=== PATIENT | female | born 1955 | race African-American/Black ===

== ENCOUNTER 2016-06-08 07:41 | Emergency (ER) | payer OTHER ==
[~2016-06-08] VITALS: Ht 165.1 cm; Wt 110.0 kg
[~2016-06-08 07:41] MED LIST: ASPI81 PO; CLON.1 PO; LOTR5CAP3 PO; PRAV10 OR; PREM0.622 PO; PROT40TA PO
[2016-06-08 07:44] VITALS: BP 188/94; PULSE 84; RESP 15; TEMP 98.2; O2SAT 99
--- NOTE | 2016-06-08 08:00 | PD ---
HPI . 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 Patient was moving a medical bed here at the hospital when a portion of the bed fell backwards and hit her in her face. She is complaining of swelling over her upper lip and very minimally on her left cheek. She really does not have any pain, but wanted to come in to be checked. She has no other complaints. PFSH Past Medical History Cancer: No Diabetes: No Glaucoma: No Hepatitis: No Hypertension: Yes Thyroid Disease: No ?: Not Past Surgical History Gynecologic Surgery: Yes (HYSTERECTOMY) Pacemaker: No Other Surgery: Yes Social History Alcohol Use: No Tobacco Use: Yes (STOPPED 15 YEARS AGO) Allergies-Medications (Allergen,Severity, Reaction): Coded Allergies: No Known Allergies (Verified , 06/08/16) Reported Meds & Prescriptions Reported Meds & Active Scripts Active Review of Systems General / Constitutional: No: Fever Eyes: No: Visual changes HENT: Positive: Other (facial swelling ), No: Headaches Cardiovascular: No: Chest Pain or Discomfort Respiratory: No: Shortness of Breath Gastrointestinal: No: Abdominal Pain Genitourinary: No: Dysuria Musculoskeletal: No: Pain Skin: No Rash Neurologic: No: Weakness Psychiatric: No: Depression Endocrine: No: Polydipsia Hematologic/Lymphatic: No: Easy Bruising Physical Exam Narrative GENERAL: AAO x 3, no acute distress, Well-nourished, well-developed patient. SKIN: Warm and dry. No visible rashes or bruising. Very minimal swelling over the lip and left cheek. NO ecchymosis HEAD: Normocephalic and atraumatic. EYES: No scleral icterus. No injection or drainage. EOM intact, PERRLA. TM normal bilaterally. ENT: No nasal drainage noted. Mucous membranes pink. Airway patent. NECK: Supple, trachea midline. No JVD. CARDIOVASCULAR: Regular rate and rhythm without murmurs, gallops, or rubs. RESPIRATORY: Breath sounds equal bilaterally. No accessory muscle use. No rhonchi or rales. GASTROINTESTINAL: Abdomen soft, non-tender, nondistended. EXTREMITIES: No cyanosis or edema. BACK: Nontender without obvious deformity. No CVA tenderness. PSYCH: AAO x 3, normal affect. 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 Patient was moving a medical bed here at the hospital when a portion of the bed fell backwards and hit her in her face. She is complaining of swelling over her upper lip and very minimally on her left cheek. She really does not have any pain, but wanted to come in to be checked. She has no other complaints. Patient seen and examined. I do not believe she has any type of facial fractures. I have discussed this with her. I do not recommend any sort of imaging. She does not have any pain or any significant findings other than some mild facial swelling above her lip and left cheek. If she uses ice the swelling will likely subside. She has been instructed to use Tylenol or Motrin as needed for pain. She is able to return to work without any restrictions. Patient verbalized understanding of instructions, questions were answered, and thanked me for their care. I advised them if their condition worsens, please return to the nearest emergency room for further care. Diagnosis Primary Impression: Contusion of face Qualified Code: S00.83XA - Contusion of face, initial encounter Patient Instructions: General Instructions Additional Instructions: Please return to emergency department if your symptoms return or worsen. Follow up with your primary care provider. You can apply ice to your lips for the mild swelling that is there. It would help it go down. Ice this area for 15-20 minutes at a time. You can do this every hour or as much as tolerated. Take Tylenol or ibuprofen as needed for pain. Disposition: 01 DISCHARGE HOME Condition: Stable Meg Grijalva Jun 08, 2016 08:00
== END 2016-06-08 08:27 | disposition home or self-care (01) ==
LOC: NEPB 07:41
DX: S00.83XA Contusion of other part of head, initial encounter (principal); I10 Essential (primary) hypertension; Z87.891 Personal history of nicotine dependence; W22.8XXA Striking against or struck by other objects, initial encounter; Y93.F9 Activity, other caregiving; Y92.239 Unspecified place in hospital as the place of occurrence of the external cause; Y99.0 Civilian activity done for income or pay
CPT/HCPCS: 99283

== ENCOUNTER → 2016-07-23 | Outpatient (CLI) | payer OTHER ==
[2016-07-23 09:24] LABS: ALKALINE PHOSPHATASE 62 U/L (45-117); ALT (GPT) 20 U/L (10-53); ANION GAP 9 MEQ/L (5-15); AST (GOT) 17 U/L (15-37); BICARBONATE 25.8 MEQ/L (21.0-32.0); BLOOD UREA NITROGEN 10 MG/DL (7-18); CHLORIDE 105 MEQ/L (98-107); GLOMERULAR FILTRATION RATE 90 ML/MIN (>89); GLUCOSE,FASTING 108 MG/DL (74-99); HDL CHOLESTEROL 81.3 MG/DL (40.0-60.0); LDL CHOLESTEROL 153 MG/DL (0-99); POTASSIUM 3.5 MEQ/L (3.5-5.1); SODIUM (NA) 140 MEQ/L (136-145); TOTAL BILIRUBIN ADULT 0.6 MG/DL (0.2-1.0)
[2016-07-23 14:17] LABS: HEMOGLOBIN A1b 1.6 %; HEMOGLOBIN Ao 84.8 %; HEMOGLOBIN LA1C 1.9 %; HEMOGLOBIN P3 3.7 %
== END ==
LOC: CLAB 08:36
PROVIDERS: ATTEND Family Medicine
DX: I10 Essential (primary) hypertension (principal); E78.2 Mixed hyperlipidemia; E11.9 Type 2 diabetes mellitus without complications
CPT/HCPCS: 36415; 80053; 80061; 83036

== ENCOUNTER → 2016-11-05 | Outpatient (CLI) | payer OTHER ==
[2016-11-05 08:48] LABS: BICARBONATE 30.9 MEQ/L (21.0-32.0); HDL CHOLESTEROL 85.9 MG/DL (40.0-60.0); INDIRECT BILIRUBIN 0.5 MG/DL (0.0-0.8); TOTAL BILIRUBIN ADULT 0.6 MG/DL (0.2-1.0)
[2016-11-05 09:22] LABS: POTASSIUM 2.6 MEQ/L (3.5-5.1)
== END ==
LOC: CLAB 07:16
PROVIDERS: ATTEND Nurse Practitioner Family
DX: E78.2 Mixed hyperlipidemia (principal); I10 Essential (primary) hypertension; Z79.899 Other long term (current) drug therapy
CPT/HCPCS: 36415; 80048; 80061; 80076

== ENCOUNTER → 2017-02-24 | Outpatient (CLI) | payer OTHER ==
[2017-02-24 12:55] LABS: BICARBONATE 32.8 MEQ/L (21.0-32.0)
[2017-02-24 12:59] LABS: POTASSIUM 2.6 MEQ/L (3.5-5.1)
== END ==
LOC: PLAB 08:58
PROVIDERS: ATTEND Family Medicine
DX: R60.9 Edema, unspecified (principal); I10 Essential (primary) hypertension; Z79.899 Other long term (current) drug therapy
CPT/HCPCS: 36415; 80048

== ENCOUNTER 2017-06-07 02:27 | Emergency (ER) | payer OTHER ==
[~2017-06-07] VITALS: Ht 162.6 cm; Wt 105.2 kg
[2017-06-07 02:30] VITALS: BP 154/74; PULSE 71; RESP 14; TEMP 97.8; O2SAT 97
[2017-06-07 02:39] VITALS: BP 149/84
[2017-06-07] MEDS ORDERED: EZET1TAB8 PO (02:52)
[2017-06-07] MEDS ORDERED: ESTR.625 PO (02:52)
[2017-06-07] MEDS ORDERED: POTA-163 PO (02:52)
[2017-06-07] MEDS ORDERED: TERA2CAP3 PO (02:52)
[2017-06-07] MEDS ORDERED: AMLO10TA2 PO (02:52)
[2017-06-07] MEDS ORDERED: ASPI1CHW4 CHEW (02:52)
[2017-06-07] MEDS ORDERED: CHLOR50 PO (02:52)
[2017-06-07 02:57] VITALS: BP 151/75
--- NOTE | 2017-06-07 02:57 | PD ---
HPI Chief Complaint: Hypertension Time Seen by Provider: 02:38 Travel History International Travel<30 days: No Contact w/Intl Traveler<30days: No Traveled to known affect area: No History of Present Illness HPI PT REPORTS HTN FLUCTUATING LEVEL OF BP HAD HEADACHE AT HOME AND REGISTERED 189/100 THEN AGAIN AWOKE WITH A HEADACHE TONIGHT iN eXAM ROOM bp 149/84 REPORTS NORMAL NOW AND NO HEADACHE ,, PT TOOK TERASOZIN 4 MG qhs AROUND MIDNIGHT PT REPORTS SHE HAD BEEN ON CLONIDINE IN PAST BUT HER PCP THOUGHT SHE HAD BEEN ON IT TOO LONG AND SWITCHED TO TERASOZIN. 4 MG QHS .DENIES CP DENIES SOB NO VISUAL CHANGES PFSH Past Medical History Cancer: No Cardiovascular Problems: No Diabetes: Yes (DIET CONTROLLED) Patient Takes Glucophage: No Glaucoma: No Hepatitis: No Hypertension: Yes Medical other: No Respiratory: No Pneumonia: Yes Thyroid Disease: No Tetanus Vaccination: > 5 Years Influenza Vaccination: Yes ?: Not Menopausal: Yes : 4 Para: 3 : 1 Tubal Ligation: Yes Past Surgical History Abdominal Surgery: Yes Gynecologic Surgery: Yes (HYSTERECTOMY) Hysterectomy: Yes Pacemaker: No Other Surgery: Yes (LAP BAND ) Social History Alcohol Use: No Tobacco Use: Yes (QUIT AGE 26) Substance Use: No Allergies-Medications (Allergen,Severity, Reaction): Coded Allergies: No Known Allergies (Verified Adverse Reaction, Unknown, 06/07/17) Reported Meds & Prescriptions Reported Meds & Active Scripts Active Clonidine (Clonidine HCl) 0.1 Mg Tab 0.1 Mg PO BID Reported Aspirin 81 Low Dose (Aspirin) 81 Mg Chew 81 Mg CHEW DAILY Ezetimibe 10 Mg Tab 10 Mg PO HS Potassium Chloride ER (Potassium Chloride) 20 Meq Tab 20 Meq PO DAILY Amlodipine (Amlodipine Besylate) 10 Mg Tab 10 Mg PO DAILY Premarin (Estrogens Conjugated) 0.625 Mg Tab 0.625 Mg PO DAILY Terazosin (Terazosin HCl) 2 Mg Cap 4 Mg PO HS Chlorthalidone 50 Mg Tab 50 Mg PO DAILY Review of Systems Except as stated in HPI: all other systems reviewed are Neg Physical Exam Narrative GENERAL: PT NON TOXIC IN NO APPARENT DISTRESS SKIN: Warm and dry. HEAD: Atraumatic. Normocephalic. EYES: Pupils equal and round. No scleral icterus. No injection or drainage. ENT: No nasal bleeding or discharge. Mucous membranes pink and moist. NECK: Trachea midline. No JVD. CARDIOVASCULAR: Regular rate and rhythm. RESPIRATORY: No accessory muscle use. Clear to auscultation. Breath sounds equal bilaterally. GASTROINTESTINAL: Abdomen soft, non-tender, nondistended. Hepatic and splenic margins not palpable. MUSCULOSKELETAL: Extremities without clubbing, cyanosis, or edema. No obvious deformities. NEUROLOGICAL: Awake and alert. No obvious cranial nerve deficits. Motor grossly within normal limits. Five out of 5 muscle strength in the arms and legs. Normal speech. PSYCHIATRIC: Appropriate mood and affect; insight and judgment normal. Data Data Last Documented VS Vital Signs Date Time Temp Pulse Resp B/P (MAP) Pulse Ox O2 Delivery O2 Flow Rate FiO2 06/07/17 04:31 06/07/17 04:13 60 61 78 06/07/17 02:30 97.8 14 97 Orders Orders Electrocardiogram (06/07/17 ) Clonidine (Catapres) (06/07/17 03:00) Orthostatic Vital Signs (06/07/17 03:55) MDM Medical Decision Making Medical Screen Exam Complete: Yes Emergency Medical Condition: Yes Differential Diagnosis HTN of fluid overload vs medication failure to control BP vs medication NON compliance vs worsening atrerial hypertension Narrative Course pt has clonidine which lowers her BP toward normal now she feels much better EKG negative Diagnosis Primary Impression: Hypertension Qualified Codes: I10 - Essential (primary) hypertension Patient Instructions: Chronic Hypertension (ED), General Instructions Additional Instructions: Follow-up with your primary care doctor to review the clonidine prescription I have given you check your blood pressure more frequently as you are taking a new blood pressure medication. If you feel dizzy discontinue the clonidine check your blood pressure an hour after taking the clonidine and let your doctor know that I have prescribed you a short course of clonidine to add to her current meds Scripts Clonidine (Clonidine) 0.1 Mg Tab 0.1 MG PO BID for Blood Pressure Management, #60 TAB 0 Refills Prov: Santana Carr MD 06/07/17 Disposition: 01 DISCHARGE HOME Condition: Good Santana Carr MD Jun 07, 2017 02:57
[2017-06-07] MEDS ORDERED: cloNIDine HCL 0.1 MG TAB PO ONE (03:00)
[2017-06-07 03:11] VITALS: BP 153/71; PULSE 60
[2017-06-07] MEDS ORDERED: CLON0.1T PO (03:34)
[2017-06-07 03:41] VITALS: BP 137/65; PULSE 59
[2017-06-07 04:13] VITALS: BP_SYST 117; BP_SYST 132; BP_SYST 136; BP_DIAS 68; BP_DIAS 69; BP_DIAS 76
--- NOTE | 2017-06-07 16:44 | EKG ---
Date Performed: 06/07/2017 Time Performed: 03:04:21 PTAGE: 61 years EKG: SINUS BRADYCARDIA LOW QRS VOLTAGE IN PRECORDIAL LEADS BORDERLINE ECG Since PREVIOUS TRACING , no significant change noted PREVIOUS TRACIN01/04/2008 08.12 DOCTOR: Dimitri Morales Interpretating Date/Time 06/07/2017 16:43:16
== END 2017-06-07 04:32 | disposition home or self-care (01) ==
LOC: PHED 02:27
DX: I10 Essential (primary) hypertension (principal); R94.31 Abnormal electrocardiogram [ECG] [EKG]; E11.9 Type 2 diabetes mellitus without complications
CPT/HCPCS: 93005; 99283